=== PATIENT | female | born 1950 | race Hispanic/Latino ===

== ENCOUNTER → 2019-04-15 | Day surgery (SDC) | payer MEDICARE, OTHER ==
[~2019-04-15] MED LIST: DICYCLOMINE HCL10 MG PO; FENTANYL CITRATE/PF 100MCG/2 ML INJ ONE; LISINOPRIL10 MG PO; MIDAZOLAM HCL 2 MG/2 ML VIAL ONE; OR PHACO EYE KIT ONE; PREOP PHACO EYE KIT ONE; SYNTHROID75 MCG PO
[2019-04-15 08:40] LABS: BASOPHILS % 0.3 % (0.0-1.0); EOSINOPHILS # (AUTO) 0.1 (0.0-0.4); EOSINOPHILS % 2.2 % (0.0-6.0); HEMATOCRIT 36.8 % (34.2-44.1); HEMOGLOBIN 12.2 g/dL (12.0-16.0); LYMPHOCYTES # (AUTO) 1.6 (1.0-3.2); LYMPHOCYTES % 26.8 % (18.0-39.1); MEAN CORPUSCULAR HEMOGLOBIN 32.3 pg (28-32); MEAN CORPUSCULAR HGB CONC 33.2 g/dL (31-35); MEAN CORPUSCULAR VOLUME 97.4 fL (81-99); MONOCYTES # (AUTO) 0.3 (0.2-0.8); MONOCYTES % 5.4 % (4.4-11.3); NEUTROPHILS # (AUTO) 3.9 (2.1-6.9); PLATELET COUNT 205 x10e3/uL (140-360); RED BLOOD COUNT 3.78 x10e6/uL (3.6-5.1); RED CELL DISTRIBUTION WIDTH 13.1 % (11.7-14.4)
[2019-04-15 11:54] VITALS: BP 156/81
== END | disposition home or self-care (01) ==
LOC: OR 07:23
PROVIDERS: ATTEND Ophthalmology
DX: H25.11 Age-related nuclear cataract, right eye (principal); I10 Essential (primary) hypertension; E03.9 Hypothyroidism, unspecified; R00.2 Palpitations; R01.1 Cardiac murmur, unspecified; R94.31 Abnormal electrocardiogram [ECG] [EKG]; R07.2 Precordial pain; I83.90 Asymptomatic varicose veins of unspecified lower extremity; K58.9 Irritable bowel syndrome, unspecified; Z88.1 Allergy status to other antibiotic agents; Z91.041 Radiographic dye allergy status; Z90.5 Acquired absence of kidney; Z85.528 Personal history of other malignant neoplasm of kidney
CPT/HCPCS: 36415; 66984; 85025; J2250; J3010; V2632

== ENCOUNTER → 2020-03-25 | Day surgery (SDC) | payer MEDICARE, OTHER ==
[2020-03-22 15:45] LABS: BASOPHILS % 0.4 % (0.0-1.0); EOSINOPHILS # (AUTO) 0.1 (0.0-0.4); HEMATOCRIT 37.9 % (34.2-44.1); HEMOGLOBIN 12.2 g/dL (12.0-16.0); LYMPHOCYTES # (AUTO) 2.1 (1.0-3.2); LYMPHOCYTES % 29.2 % (18.0-39.1); MEAN CORPUSCULAR HEMOGLOBIN 32.3 pg (28-32); MEAN CORPUSCULAR HGB CONC 32.2 g/dL (31-35); MEAN CORPUSCULAR VOLUME 100.3 fL (81-99); MONOCYTES # (AUTO) 0.5 (0.2-0.8); MONOCYTES % 6.6 % (4.4-11.3); NEUTROPHILS # (AUTO) 4.4 (2.1-6.9); NEUTROPHILS % 61.5 % (38.7-80.0); PLATELET COUNT 169 x10e3/uL (140-360); RED BLOOD COUNT 3.78 x10e6/uL (3.6-5.1); RED CELL DISTRIBUTION WIDTH 13.3 % (11.7-14.4)
[~2020-03-25] MED LIST changes: +COLESTIPOL HCL1 GM PO; +ETOMIDATE 2 MG/ML 10 ML INJ IV ONE; +HYOSCYAMINE 0.125 MG TAB ONE; +LIDOCAINE HCL 2% LOCAL INJ 5 ML SDV VIAL INJ ONE; -OR PHACO EYE KIT ONE; -PREOP PHACO EYE KIT ONE; +PROPOFOL IV EMULSION 10 MG/ML 20 ML VIAL ONE
[2020-03-25 12:35] VITALS: BP 121/57
[2020-03-25 14:06] LABS: WBC,FECAL (FECAL LACTOFERRIN) NEGATIVE (NEGATIVE)
[2020-03-26 14:56] LABS: C DIFFICILE TOXIN A&B AMP PROB NEGATIVE (NEGATIVE)
== END | disposition home or self-care (01) ==
LOC: OR 08:57
PROVIDERS: ATTEND Internal Medicine Gastroenterology
DX: K52.9 Noninfective gastroenteritis and colitis, unspecified (principal); D12.0 Benign neoplasm of cecum; D12.2 Benign neoplasm of ascending colon; K57.30 Diverticulosis of large intestine without perforation or abscess without bleeding; K62.89 Other specified diseases of anus and rectum; K64.8 Other hemorrhoids; E03.9 Hypothyroidism, unspecified; I10 Essential (primary) hypertension; R01.1 Cardiac murmur, unspecified; Z88.1 Allergy status to other antibiotic agents; Z01.812 Encounter for preprocedural laboratory examination; Z20.828 Contact with and (suspected) exposure to other viral communicable diseases; Z86.19 Personal history of other infectious and parasitic diseases; Z85.528 Personal history of other malignant neoplasm of kidney; Z85.3 Personal history of malignant neoplasm of breast; Z86.73 Personal history of transient ischemic attack (TIA), and cerebral infarction without residual deficits
CPT/HCPCS: 36415; 45380; 83630; 83993; 85025; 87045; 87177; 87328; 87493; 88305; U0002; 45378; 45384; J2001; J2250; J3010

== ENCOUNTER → 2020-04-15 | Outpatient (CLI) | payer MEDICARE ==
[~2020-04-15] MED LIST changes: -ETOMIDATE 2 MG/ML 10 ML INJ IV ONE; -FENTANYL CITRATE/PF 100MCG/2 ML INJ ONE; -HYOSCYAMINE 0.125 MG TAB ONE; -LIDOCAINE HCL 2% LOCAL INJ 5 ML SDV VIAL INJ ONE; -MIDAZOLAM HCL 2 MG/2 ML VIAL ONE; -PROPOFOL IV EMULSION 10 MG/ML 20 ML VIAL ONE
--- NOTE | 2020-04-15 12:02 | Diagnostic Imaging Report ---
Small bowel series, 04/15/2020. History: Chronic diarrhea and midline abdominal pain. Discussion: A white sugar supervisor film of the abdomen was obtained demonstrating no abnormality. Patient was given barium to drink and sequential digital images of the abdomen were obtained through 1 hour. Fluoroscopic spot images of the terminal ileum were obtained. Fluoroscopy time: 27 minutes. Dose: 16.1 mGy (NANDINI) The small bowel transit time is normal, and the small bowel loops are normal in size and appearance without evidence of mucosal irregularity or extrinsic abnormality. Terminal ileum was normal in appearance. There is no evidence of mass, obstruction, or diverticula. IMPRESSION: Normal small bowel series. Signed by: Vinh Howell on 04/15/2020 11:59 AM
== END ==
LOC: DX 09:25
PROVIDERS: ATTEND Internal Medicine Gastroenterology
DX: R19.7 Diarrhea, unspecified (principal); Z20.828 Contact with and (suspected) exposure to other viral communicable diseases
CPT/HCPCS: 74250; U0002

== ENCOUNTER → 2021-03-23 | Day surgery (SDC) | payer MEDICARE ==
[2021-03-21 12:27] LABS: BASOPHILS % 0.4 % (0.0-1.0); EOSINOPHILS # (AUTO) 0.2 (0.0-0.4); HEMOGLOBIN 12.8 g/dL (12.0-16.0); LYMPHOCYTES # (AUTO) 2.1 (1.0-3.2); LYMPHOCYTES % 25.7 % (18.0-39.1); MEAN CORPUSCULAR HEMOGLOBIN 31.9 pg (28-32); MEAN CORPUSCULAR HGB CONC 32.8 g/dL (31-35); MEAN CORPUSCULAR VOLUME 97.3 fL (81-99); MONOCYTES # (AUTO) 0.5 (0.2-0.8); MONOCYTES % 5.6 % (4.4-11.3); NEUTROPHILS # (AUTO) 5.4 (2.1-6.9); NEUTROPHILS % 65.9 % (38.7-80.0); PLATELET COUNT 215 x10e3/uL (140-360); RED BLOOD COUNT 4.01 x10e6/uL (3.6-5.1); RED CELL DISTRIBUTION WIDTH 12.7 % (11.7-14.4)
[~2021-03-23] MED LIST changes: +MIDAZOLAM HCL 2 MG/2 ML VIAL ONE; +PROPOFOL IV EMULSION 10 MG/ML 20 ML VIAL ONE; +PROTONIX20 MG PO
[2021-03-23 12:25] VITALS: BP 116/61
[2021-03-23 15:36] LABS: WBC,FECAL (FECAL LACTOFERRIN) NEGATIVE (NEGATIVE)
[2021-03-24 16:09] LABS: C DIFFICILE TOXIN A&B AMP PROB NEGATIVE (NEGATIVE)
== END | disposition home or self-care (01) ==
LOC: OR 09:22
PROVIDERS: ATTEND Internal Medicine Gastroenterology
DX: K29.50 Unspecified chronic gastritis without bleeding (principal); Z86.010 Personal history of colon polyps; K31.7 Polyp of stomach and duodenum; K52.9 Noninfective gastroenteritis and colitis, unspecified; K27.9 Peptic ulcer, site unspecified, unspecified as acute or chronic, without hemorrhage or perforation; K20.90 Esophagitis, unspecified without bleeding; K62.89 Other specified diseases of anus and rectum; K64.8 Other hemorrhoids; I10 Essential (primary) hypertension; E03.9 Hypothyroidism, unspecified; Z88.1 Allergy status to other antibiotic agents; Z91.041 Radiographic dye allergy status; Z01.812 Encounter for preprocedural laboratory examination; Z20.822 Contact with and (suspected) exposure to COVID-19; Z85.528 Personal history of other malignant neoplasm of kidney; Z85.3 Personal history of malignant neoplasm of breast; Z86.73 Personal history of transient ischemic attack (TIA), and cerebral infarction without residual deficits
CPT/HCPCS: 36415; 43239; 45380; 83630; 83993; 85025; 87045; 87177; 87328; 87493; 88305; 88312; J2250; J2704; U0002; 45378

== ENCOUNTER → 2024-12-05 | Outpatient (REF) | payer MEDICARE ==
[~2024-12-05] MED LIST changes: +ACYCLOVIR800 MG PO; +ASPIRIN81 MG PO; -MIDAZOLAM HCL 2 MG/2 ML VIAL ONE; +NEURONTIN300 MG PO; +PREDNISONE20 MG PO; -PROPOFOL IV EMULSION 10 MG/ML 20 ML VIAL ONE; +ULTRAM 50MG50 MG PO; +VITAMIN C1000 MG PO; +VITAMIN D
[2024-12-05 12:57] LABS: BASOPHILS % 0.3 % (0.0-1.0); EOSINOPHILS % 1.8 % (0.0-6.0); LYMPHOCYTES % 29.0 % (18.0-39.1); MONOCYTES % 6.6 % (4.4-11.3); NEUTROPHILS % 62.0 % (38.7-80.0)
[2024-12-05 13:33] LABS: RED CELL DISTRIBUTION WIDTH 13.5 % (11.7-14.4)
== END ==
LOC: RAD 12:01 → EDSTATUS 12-15 12:00
PROVIDERS: ATTEND Internal Medicine Gastroenterology
DX: Z01.818 Encounter for other preprocedural examination (principal); R19.7 Diarrhea, unspecified; R15.2 Fecal urgency
CPT/HCPCS: 36415; 85025; 93005

== ENCOUNTER 2025-01-02 16:22 | Emergency (ER) | payer MEDICARE, OTHER ==
[~2025-01-02] VITALS: Ht 165.1 cm; Wt 56.2 kg
[2025-01-02 16:49] LABS: BASOPHILS % 0.4 % (0.0-1.0); EOSINOPHILS % 0.7 % (0.0-6.0); LYMPHOCYTES % 15.4 % (18.0-39.1); MONOCYTES % 3.0 % (4.4-11.3); NEUTROPHILS % 80.1 % (38.7-80.0); RED CELL DISTRIBUTION WIDTH 13.3 % (11.7-14.4)
[2025-01-02 17:03] LABS: INR 0.84
[2025-01-02] MEDS: SODIUM CHLORIDE 0.9% 1000ML 1,000 ML IV STA (17:09)
[2025-01-02 17:11] LABS: EST GLOMERULAR FILTRATION RATE 91.0 ML/MIN (>=60)
[2025-01-02] MEDS: ASPIRIN 325 MG TAB PO ONE (18:33)
[2025-01-02 18:45] VITALS: PULSE 85; RESP 21; TEMP 98; O2SAT 96
== END 2025-01-02 19:20 | disposition other institution (70) ==
LOC: ER 16:41
DX: R51.9 Headache, unspecified (principal); G45.9 Transient cerebral ischemic attack, unspecified; R53.1 Weakness; R53.81 Other malaise; I10 Essential (primary) hypertension; Z86.73 Personal history of transient ischemic attack (TIA), and cerebral infarction without residual deficits
CPT/HCPCS: 36415; 70450; 71045; 80053; 82550; 82948; 83690; 83880; 84484; 85025; 85610; 93005; 99284; J7030